=== PATIENT | male | born 2005 | race Caucasian/White ===

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

== ENCOUNTER → 2024-05-07 08:07 | Outpatient (CLI) | payer OTHER, MEDICAID, SELFPAY ==
--- NOTE | 2024-05-07 | DI.US.S_ITS ---
PROCEDURE: US ABDOMEN LIMITED INDICATIONS: Pilonidal cyst without abscess TECHNIQUE: Real-time focused scanning was performed of the abdomen, with image documentation. COMPARISON: None. FINDINGS: 6 mm x 4 mm x 6 mm hypoechoic collection containing internal debris underlying the skin in the area of interest within the intergluteal cleft. There is a question of a small tract or sinus coursing deep to the skin medially. IMPRESSION: 6 mm cystic collection containing internal debris within the intergluteal cleft with question of a small deeper sinus track and likely corresponding to known pilonidal cyst. Dictated by: Marcos Perez M.D. on 05/07/2024 at 12:39 Approved by: Marcos Perez M.D. on 05/07/2024 at 12:48
== END ==
LOC: US 08:08
PROVIDERS: Family Provider Pediatrics; PCP Family Medicine; Referring Provider Family Medicine; Visit Provider Family Medicine
DX: L05.91 Pilonidal cyst without abscess (principal)
CPT/HCPCS: 76705